=== PATIENT | female | born 1960 | race African-American/Black ===

== ENCOUNTER → 2017-10-05 | Outpatient (CLI) | payer OTHER ==
[~2017-10-05] MED LIST: MEDR4PAK PO; MOBI7.5T PO
--- NOTE | 2017-10-05 08:15 | RADRPT ---
EXAM DATE/TIME: 10/05/2017 07:44 [facility] COMPARISON: No previous studies available for comparison. INDICATIONS : Right shoulder pain , patient possibly pulled lifting patient. MEDICAL HISTORY : None. SURGICAL HISTORY : None. ENCOUNTER: Initial ACUITY: 2 days PAIN SCORE: 6/10 LOCATION: Right shoulder FINDINGS: Multiple view examination of the right shoulder demonstrates no evidence of fracture or dislocation. The glenohumeral and acromioclavicular joints are maintained. There is normal range of motion betwe en internal and external rotation. Bony mineralization is normal. CONCLUSION: Unremarkable examination of the right shoulder. Santhosh Epstein Jr., MD on October 05, 2017 at 8:13 Board Certified Radiologist. This report was verified electronically.
--- NOTE | 2017-10-05 08:17 | RADRPT ---
EXAM DATE/TIME: 10/05/2017 07:46 [facility] COMPARISON: SHOULDER RIGHT COMPLETE (>2VWS), October 05, 2017, 7:44. INDICATIONS : Right shoulder pain ,possibly from lifting patient. MEDICAL HISTORY : None. SURGICAL HISTORY : None. ENCOUNTER: Initial ACUITY: 2 days PAIN SCORE: 6/10 LOCATION: Right shoulder FINDINGS: Two view examination of the right clavicle demonstrates no evidence of fracture. The sternoclavicula r joints and acromioclavicular joints are maintained. Bony mineralization is normal. CONCLUSION: Unremarkable examination of the right clavicle. Santhosh Epstein Jr., MD on October 05, 2017 at 8:13 Board Certified Radiologist. This report was verified electronically.
== END ==
LOC: HRAD 07:27
PROVIDERS: ATTEND Family Medicine
DX: M25.511 Pain in right shoulder (principal)
CPT/HCPCS: 73000; 73030

== ENCOUNTER → 2017-12-14 | Outpatient (CLI) | payer OTHER | LOC: HRAD 06:44 | PROVIDERS: ATTEND Family Medicine | DX: M25.511 Pain in right shoulder (principal) ==

== ENCOUNTER → 2018-01-18 | Outpatient (CLI) | payer OTHER ==
--- NOTE | 2018-01-18 15:04 | RADRPT ---
EXAM DATE/TIME: 01/18/2018 14:12 [facility] COMPARISON: No previous studies available for comparison. INDICATIONS : Irregular vaginal bleeding. MEDICAL HISTORY : Endometriosis. SURGICAL HISTORY : Tubal ligation. D&C. ENCOUNTER: Initial ACUITY: 1 day PAIN SCORE: 0/10 LOCATION: Bilateral pelvis MEASUREMENTS: UTERUS: 9.7 x 5.3 x 6.6 cm ENDOMETRIAL STRIPE: 11 mm RIGHT OVARY: Non visualized LEFT OVARY: 4.4 x 3.0 x 3.4 cm FINDINGS: Endometrium prominent at 11 mm. No uterine mass. Right ovary not visualized. Left ovary within normal limits. No free fluid or CONCLUSION: 1. Endometrial stripe thickened 11 mm. 2. No adnexal mass or free fluid identified. Andrew Parrish MD on January 18, 2018 at 14:59 Board Certified Radiologist. This report was verified electronically.
== END ==
LOC: HRAD 13:52
PROVIDERS: ATTEND Family Medicine
DX: N93.9 Abnormal uterine and vaginal bleeding, unspecified (principal)
CPT/HCPCS: 76856